=== PATIENT | female | born 1995 | race Hispanic/Latino ===

== ENCOUNTER 2016-11-03 07:03 | Emergency (ER) | payer OTHER ==
[~2016-11-03] VITALS: Ht 167.6 cm; Wt 77.1 kg
--- NOTE | 2016-11-03 07:15 | NUR ---
ARRIVAL PATIENT ARRIVED TO [facility], C/O OF VOMITING THIS MORNING, WAS SEEN RECENTLY IN THE ED FOR SIMILAR SYMPTOMS AND WAS SENT HOME, DENIES ANY OUT OF THE ORDINARY MEALS, DECIDED TO COME TO ED FOR FURTHER EVAL BY EDP. NO DISTRESS NOTED.
[2016-11-03] MEDS ORDERED: ZOFRAN IV STA (07:27)
--- NOTE | 2016-11-03 07:28 | ER.PDOC ---
General Chief Complaint: Nausea,Vomiting,Diarrhea Stated Complaint: VOMITING Time seen by MD: 07:25 Source: patient, family Exam Limitations: no limitations History of Present Illness Timing/Duration: 4-6 hours Severity/Quality: mild Associated Symptoms (vomiting): mild vomiting Associated Symptoms (diarrhea): mild Prior symptoms/Treatment: Similar symptoms previous, Recently Hospitalized Allergies: Coded Allergies: No Known Allergies (Unverified , 11/17/12) Home Meds No Active Prescriptions or Reported Meds Vital Signs First Vital Signs Date Time Temp Pulse Resp B/P (MAP) Pulse Ox O2 Delivery O2 Flow Rate FiO2 11/03/16 07:10 97.7 122 18 96 11/03/16 07:12 125/82 (96) Last Vital Signs Date Time Temp Pulse Resp B/P (MAP) Pulse Ox O2 Delivery O2 Flow Rate FiO2 11/03/16 07:12 97.7 122 18 125/82 (96) 96 Past Medical History Medical History: no pertinent history Surgical History: no surgical history LMP (females 10-50): 10/07/16 Family History Significant Family History: no pertinent family hx Social History Smoking: cigarettes, less than 1 pack/day Alcohol Use: none Drug Use: none Constitutional: denies fever Respiratory: denies cough Cardiovascular: denies chest pain Gastrointestinal: vomiting Genitourinary: denies dysuria Skin: denies change in color Psychiatric/Neurological: denies anxiety All Other Systems: Reviewed and Negative Physical Exam General Appearance: Anxious HEENT: PERRL/EOMI, Normal ENT Inspection, TMs Normal, Pharynx Normal Neck: Non-Tender, Full Range of Motion, Supple, Normal Inspection Respiratory: chest non-tender, lungs clear, normal breath sounds, no respiratory distress, no accessory muscle use Cardiovascular: Tachycardia Gastrointestinal: Normal Bowel Sounds, Non Tender, Soft Back: Normal Inspection, No CVA Tenderness, No Vertebral Tenderness Extremities: Normal Range of Motion, Non-Tender, Normal Inspection, No Pedal Edema, No Calf Tenderness, Normal Capillary Refill, Pelvis Stable Neurologic/Psychiatric: clinical support nurse II-XII NML as Tested, No Motor/Sensory Deficits, Alert, Normal Mood/Affect, Oriented x 3 Skin: Normal Color, Warm/Dry Lymphatic: No Adenopathy Comments vital tachy 122 Results/Orders Results/Orders Laboratory Tests Test 11/03/16 07:40 11/03/16 07:45 Urine Collection Type UNKNOWN Urine Color YELLOW (YELLOW) Urine Appearance CLEAR (CLEAR) Urine Bilirubin NEGATIVE MG/DL (NEGATIVE) Urine Ketones NEGATIVE (NEGATIVE) Urine Specific [place] 1.015 (1.005-1.035) Urine pH 6 (5.0-6.0) Urine Protein NEGATIVE (NEGATIVE) Urine Urobilinogen NORMAL (NEGATIVE) Urine Nitrate NEGATIVE (NEGATIVE) Urine Leukocyte Esterase 25 /uL TRACE (NEGATIVE) Urine Blood 50 2+ (NEGATIVE) Urine RBC 0-2 RBC/HPF (NONE SEEN) Urine WBC 2-5 WBC/HPF (0-2) Urine Squamous Epithelial Cells MANY #/HPF (FEW) Urine Bacteria FEW (NONE SEEN) Urine Glucose NORMAL (NEGATIVE) Urine HCG, Qualitative NEGATIVE (NEGATIVE) White Blood Count 7.8 10^3/uL (4.5-11.0) Red Blood Count 4.66 10^6/uL (4.00-5.20) Hemoglobin 14.3 g/dL (12.0-15.0) Hematocrit 41.1 % (36.0-46.0) Mean Corpuscular Volume 88.2 fL (78-100) Mean Corpuscular Hemoglobin 30.7 pg (26-34) Mean Corpuscular Hemoglobin Concent 34.8 g/dL (33-37) Red Cell Distribution Width 12.6 % (11.5-14.5) Platelet Count 349 10^3/uL (150-400) Mean Platelet Volume 9.2 fL (7.8-11.0) Neutrophils (%) (Auto) 64.2 % (41.0-85.0) Lymphocytes (%) (Auto) 28.5 % (24.0-44.0) Monocytes (%) (Auto) 6.4 % (5.0-12.0) Neutrophils # (Auto) 5.0 10^3/uL (1.8-7.7) Lymphocytes # (Auto) 2.2 10^3/uL (1.0-4.8) Monocytes # (Auto) 0.5 10^3/uL (0.3-0.8) Absolute Immature Granulocyte (auto 0.01 10^3 u/L (0-2) Eosinophils % 0.3 % (0.0-5.0) Basophils % 0.5 % (0.0-0.2) Basophils # 0.0 10^3/uL (0.0-0.1) Eosinophil Count 0.0 10^3/uL (0.0-0.2) Sodium Level 141 mmol/L (132-145) Potassium Level 3.9 mmol/L (3.6-5.2) Chloride Level 103.0 mmol/L (96-109) Carbon Dioxide Level 23.2 mmol/L (20.0-32) Anion Gap 18.7 Blood Urea Nitrogen 9 mg/dL (7-18) Creatinine 0.82 mg/dL (0.59-1.40) Estimated GFR () 105.5 (>/=60) BUN/Creatinine Ratio 10.0 Glucose Level 97 mg/dL (70-110) Calcium Level 9.3 mg/dL (8.4-10.5) Total Bilirubin 0.6 mg/dL (0.2-1.0) Aspartate Amino Transf (AST/SGOT) 18 U/L (0-35) Alanine Aminotransferase (ALT/SGPT) 25 U/L (12-78) Alkaline Phosphatase 96 U/L (50-136) Total Protein 8.8 g/dL (6.4-8.2) Albumin 4.3 g/dL (3.4-5.0) Globulin 4.5 Percent Immature Gran (Cell Imm) 0.10 % (0.00-0.50) Administered Medications Medications (Trade) Dose Ordered Sig/Samuel Route PRN Reason Start Time Stop Time Status Last Admin Dose Admin Sodium Chloride 1,000 ml @ 0 mls/hr Q0M ONCE IV 11/03/16 07:30 11/03/16 07:31 UNV 11/03/16 07:46 Ondansetron HCl (Zofran) 4 mg STAT STAT IV 11/03/16 07:27 11/03/16 07:28 UNV 11/03/16 07:46 Progress Progress labs neg hcg neg ua + Departure Time of Disposition: 08:58 Impression: Primary Impression: UTI (urinary tract infection) Condition: Stable Referrals: PCP,UNKNOWN (PCP) PRIMARY CARE PROVIDER Additional Instructions: zofran septra Scripts No Active Prescriptions or Reported Meds TIMBO RIDLEY Dr., MD Nov 03, 2016 07:28
[2016-11-03] MEDS ORDERED: NS 1000ML 1,000 ML IV ONE (07:30)
[2016-11-03] MEDS ORDERED: ZOFRAN ONE (07:37)
[2016-11-03] MEDS ORDERED: NS 1000ML 1,000 ML ONE (07:37)
[2016-11-03 07:45] LABS: BILIRUBIN,URINE NEGATIVE (NEGATIVE); UROBILINOGEN,URINE NORMAL (NEGATIVE)
[2016-11-03 07:47] LABS: APPEARANCE,URINE CLEAR (CLEAR); UA COLOR YELLOW (YELLOW)
[2016-11-03 07:51] LABS: BASOPHIL % 0.5 % (0.0-0.2); EOSINOPHIL % 0.3 % (0.0-5.0); HEMOGLOBIN 14.3 g/dL (12.0-15.0); LYMPHOCYTES # 2.2 10^3/uL (1.0-4.8); LYMPHOCYTES % 28.5 % (24.0-44.0); MEAN CELL HGB 30.7 pg (26-34); MEAN CELL HGB CONCENTRATION 34.8 g/dL (33-37); MEAN CORP VOLUME 88.2 fL (78-100); MEAN PLATELET VOLUME 9.2 fL (7.8-11.0); MONOCYTES # 0.5 10^3/uL (0.3-0.8); MONOCYTES % 6.4 % (5.0-12.0); NEUTROPHILS % 64.2 % (41.0-85.0); RED CELL DISTRIBUTION WIDTH 12.6 % (11.5-14.5); WHITE BLOOD CELL 7.8 10^3/uL (4.5-11.0)
[2016-11-03 08:09] LABS: CALCIUM 9.3 mg/dL (8.4-10.5); CARBON DIOXIDE 23.2 mmol/L (20.0-32)
--- NOTE | 2016-11-03 08:12 | NUR ---
[facility] DOCTOR [facility] NOTIFIED OF ALL LAB RESULTS RECEIVED.
--- NOTE | 2016-11-03 09:12 | NUR ---
IV 20G IV DC'D TIP INTACT TO LEFT AC, NO SIGN OF INFILTRATION NOTED.
[2016-11-03 09:21] VITALS: BP 108/83
== END 2016-11-03 09:20 | disposition home or self-care (01) ==
LOC: ER 07:03
DX: N39.0 Urinary tract infection, site not specified (principal); R19.7 Diarrhea, unspecified; R11.2 Nausea with vomiting, unspecified; F17.210 Nicotine dependence, cigarettes, uncomplicated
CPT/HCPCS: 36415; 80053; 81000; 81025; 85025; 87086; 96361; 96374; 99284; J2405; J7030

== ENCOUNTER 2016-11-05 20:03 | Emergency (ER) | payer OTHER ==
[~2016-11-05] VITALS: Ht 167.6 cm; Wt 77.1 kg
--- NOTE | 2016-11-05 20:17 | NUR ---
STATUS PT SITTING UP, TEXTING ON PHONE, RESP EVEN AND UNLABORED, SKIN PINK WARM AND DRY, SEEN IN ER YESTERDAY, DX UTI, PT STATES SHE DID NOT HAVE THE MONEY TO FILL THE PRESCRIPTION.
--- NOTE | 2016-11-05 20:27 | ER.PDOC ---
General Chief Complaint: Chest Pain-Non Cardiac Nature Stated Complaint: CHEST/NECK PAIN TRAVEL OUT OF US: No Time seen by MD: 20:19 Source: patient Exam Limitations: no limitations History of Present Illness Initial Comments non compliant on uti meds from 36 hrs ago c/o sore throat Timing/Duration: unsure Severity: mild Modifying Factors: improves with cold therapy Associated Symptoms: denies symptoms Allergies: Coded Allergies: No Known Allergies (Unverified , 11/05/16) Home Meds No Active Prescriptions or Reported Meds Past Medical History Medical History: no pertinent history Surgical History: no surgical history LMP (females 10-50): 3 weeks Family History Significant Family History: no pertinent family hx Social History Smoking: cigarettes, less than 1 pack/day Alcohol Use: occassionally Drug Use: none Review of Systems EENTM: throat pain All Other Systems: Reviewed and Negative Physical Exam General Appearance: No Apparent Distress, WD/WN EENT: eyes nml inspection, nml ENT inspection Neck: Non-Tender, Full Range of Motion Respiratory: chest non-tender, lungs clear CVS: reg rate & rhythm, no murmur Gastrointestinal: Normal Bowel Sounds, No Organomegaly Extremities: Normal Range of Motion Neurologic/Psychiatric: subgrade tester II-XII NML as Tested, Motor Weakness Lymphatic: No Adenopathy Progress Progress strep neg Departure Time of Disposition: 20:42 Disposition: 01 HOME, SELF-CARE Impression: Primary Impression: Acute pharyngitis Condition: Stable Referrals: PCP,UNKNOWN (PCP) PRIMARY CARE PROVIDER Additional Instructions: zpak Scripts No Active Prescriptions or Reported Meds TIMBO RIDLEY Dr., MD Nov 05, 2016 20:27
[2016-11-05 21:07] VITALS: BP 116/69
== END 2016-11-05 20:52 | disposition home or self-care (01) ==
LOC: ER 20:03
DX: J02.9 Acute pharyngitis, unspecified (principal); F17.210 Nicotine dependence, cigarettes, uncomplicated
CPT/HCPCS: 87070; 87880; 99284